=== PATIENT | female | born 2000 | race Caucasian/White ===

== ENCOUNTER 2020-08-30 21:07 | Emergency (ER) | payer OTHER ==
--- NOTE | 2020-08-30 21:44 | ER Document Report ---
ED Medical Screen (RME) - General Stated Complaint: UPPER SHOULDER PAIN/ELEVATING DOWN LEFT ARM - HPI Notes: 08/30/20 21:36 Rapid Medical Exam HPI: Pt is a 20 year old female c/o upper back pain radiating to left arm. Pt says she had a home and had a confirmatory test at her doctors office 2 days ago. last periods was 08/14. left upper back pain began 30 minutes ago while laying down at home. pain is sharp and intermittent. no hx of pe/dvt. Pt says she has had some intermittent vaginal bleeding- describes it as spotting. no abdominal pain. also says she gets numbness to bilat feet and hands X 1 year. Physical Exam: GENERAL: Well-appearing, well-nourished and in no acute distress. HEAD: Atraumatic, normocephalic. ENT: Moist mucous membranes. RESP: Respirations even and unlabored CV- Regular rate. NEURO: No focal neurological deficits. Moves all extremities spontaneously and on command. My involvement in this patients care was limited to a rapid initial assessment. A comprehensive ED assessment and evaluation of the patient, analysis of test results, treatment, and completion of the medical decision making process will be performed by other ER providers. Physical Exam - Vital signs Vitals: Temp Pulse Resp BP Pulse Ox 98.3 F 96 16 148/88 H 99 08/30/20 21:14 08/30/20 21:14 08/30/20 21:14 08/30/20 21:14 08/30/20 21:14 Course - Vital Signs Vital signs: Temp Pulse Resp BP Pulse Ox 98.3 F 96 16 148/88 H 99 08/30/20 21:14 08/30/20 21:14 08/30/20 21:14 08/30/20 21:14 08/30/20 21:14
[2020-08-30 22:35] LABS: ABSOLUTE BASOPHILS # (AUTO) 0.1 10^3/uL (0.0-0.2); ABSOLUTE EOSINOPHILS # (AUTO) 0.1 10^3/uL (0.0-0.6); ABSOLUTE MONOCYTES (AUTO) 0.8 10^3/uL (0.1-1.4); ABSOLUTE NEUT (AUTO) 9.9 10^3/uL (1.7-8.2); BASOPHILS % (AUTO) 0.6 % (0-2); EOSINOPHILS % (AUTO) 0.6 % (0-6); HEMOGLOBIN 13.3 g/dL (12.0-15.5); LYMPHOCYTES % (AUTO) 21.5 % (13-45); MEAN CORPUSCULAR HEMOGLOBIN 28.3 pg (27.0-33.4); MEAN CORPUSCULAR HGB CONC 34.1 g/dL (32.0-36.0); MEAN CORPUSCULAR VOLUME 83 fl (80-97); MONOCYTES % (AUTO) 5.8 % (3-13); PLATELET COUNT 286 10^3/uL (150-450); RED BLOOD COUNT 4.69 10^6/uL (3.72-5.28); SEGMENTED NEUTROPHILS % (AUTO) 71.5 % (42-78); TOTAL CELLS COUNTED % (AUTO) 100 %; WHITE BLOOD COUNT 13.9 10^3/uL (4.0-10.5)
[2020-08-30 22:50] LABS: APPEARANCE,URINE SLIGHTLY-CLOUDY; BILIRUBIN,URINE NEGATIVE (NEGATIVE); COLOR,URINE YELLOW; GLUCOSE, URINE NEGATIVE (NEGATIVE); KETONES,URINE NEGATIVE (NEGATIVE); LEUKOCYTE ESTERASE,URINE NEGATIVE (NEGATIVE); NITRITE,URINE NEGATIVE (NEGATIVE); PROTEIN,URINE NEGATIVE (NEGATIVE); URINE SPECIFIC GRAVITY 1.026; UROBILINOGEN,URINE NEGATIVE mg/dL (<2.0)
[2020-08-30 22:56] LABS: ALBUMIN 4.6 g/dL (3.5-5.0); ALKALINE PHOSPHATASE 97 U/L (38-126); ANION GAP 7 (5-19); ASPARTATE AMINO TRANSFERASE 24 U/L (14-36); BILIRUBIN,DIRECT 0.1 mg/dL (0.0-0.4); BILIRUBIN,TOTAL 0.5 mg/dL (0.2-1.3); BLOOD UREA NITROGEN 15 mg/dL (7-20); CALCIUM 9.6 mg/dL (8.4-10.2); CARBON DIOXIDE 28 mmol/L (22-30); CHLORIDE 101 mmol/L (98-107); GLUCOSE 91 mg/dL (75-110); POTASSIUM 3.7 mmol/L (3.6-5.0); TOTAL PROTEIN 7.9 g/dL (6.3-8.2)
--- NOTE | 2020-08-30 23:23 | ER Document Report ---
HPI - HPI Patient complains to provider of: Numbness to left upper back and left upper arm Time Seen by Provider: 08/30/20 22:48 Onset: This evening Onset/Duration: Gradual, Intermittent Quality of pain: Achy Pain Level: 2 Context: Patient states that around 8 PM this evening she developed some numbness to the left upper back and posterior aspect of the left upper extremity. Patient states symptoms have been intermittent since then. Patient denies any injury. Patient denies any history of IV drug abuse. Patient initially reported in triage that she had a positive test and has had some vaginal spotting. Patient states that she does not want to be evaluated for any issue she plans to terminate her current . Patient states that she really would like to be discharged at this time and does not want any additional testing this evening. Associated Symptoms: Other - Numbness to left upper extremity and left upper back Exacerbated by: Denies Relieved by: Denies Similar symptoms previously: No Recently seen / treated by doctor: No - ROS ROS below otherwise negative: Yes Systems Reviewed and Negative: Yes All other systems reviewed and negative - CONSTITUTIONAL Constitutional: DENIES: Fever, Chills - NEURO Neurology: DENIES: Headache, Weakness - RESPIRATORY Respiratory: DENIES: Coughing - GASTROINTESTINAL Gastrointestinal: DENIES: Abdominal Pain - REPRODUCTIVE Reproductive: REPORTS: : - MUSCULOSKELETAL Musculoskeletal: REPORTS: Neck Pain. DENIES: Extremity pain, Back Pain, Swelling - DERM Skin Color: Normal Skin Problems: None Past Medical History - General Information source: Patient - Social History Smoking Status: Never Smoker Frequency of alcohol use: None Drug Abuse: None Lives with: Spouse/Significant other Family History: Reviewed & Not Pertinent Psychiatric Medical History: Reports: Hx Anxiety Past Surgical History: Reports: Hx Appendectomy Vertical Provider Document - CONSTITUTIONAL Agree With Documented VS: Yes Exam Limitations: No Limitations General Appearance: WD/WN, No Apparent Distress Notes: PHYSICAL EXAMINATION: GENERAL: Well-appearing and in no acute distress. HEAD: Atraumatic, normocephalic. EYES: sclera anicteric, conjunctiva are normal. ENT: nares patent. Moist mucous membranes. NECK: Posterior cervical midline tenderness C5-6 area, no step-off or deformity, left cervical paraspinal muscle tenderness, normal range of motion, supple without lymphadenopathy LUNGS: CTAB and equal. No wheezes rales or rhonchi. HEART: Regular rate and rhythm without murmurs EXTREMITIES: 5/5 muscle strength to bilateral upper extremities, normal muscle tone to bilateral upper extremities, normal range of motion, no pitting edema. No cyanosis. BACK: No midline tenderness, no step-off or deformity. No CVA tenderness PSYCH: Normal mood, normal affect. SKIN: Warm, Dry, normal turgor, no rashes or lesions noted Course - Re-evaluation Re-evalutation: 08/30/20 23:20 Patient presents with intermittent altered sensation to the left upper back and posterior aspect of left upper extremity has been off and on since 8 PM today. Patient does have midline cervical tenderness. Offered patient imaging studies, patient declines at this time as symptoms have been off and on. Patient prefers to see if symptoms resolve as she is wanting to be discharged at this time. Patient states that she is although does not plan to keep the child and has made steps for termination. Patient declines any further evaluation of any vaginal spotting symptoms at this time. Patient encouraged to follow-up with her primary doctor as well as orthopedics for any persistent problems. - Vital Signs Vital signs: Temp Pulse Resp BP Pulse Ox 98.3 F 96 16 148/88 H 99 08/30/20 21:14 08/30/20 21:14 08/30/20 21:14 08/30/20 21:14 08/30/20 21:14 - Laboratory Result Diagrams: 08/30/20 22:20 08/30/20 22:20 Laboratory results interpreted by me: 08/30/20 08/30/20 08/30/20 22:20 22:20 22:20 WBC 13.9 H Absolute Neuts (auto) 9.9 H Sodium 135.6 L Urine HCG, Qual POSITIVE H 08/31/20 00:20 Labs- All tests 24 hr 08/30/20 08/30/20 08/30/20 22:20 22:20 22:20 WBC 13.9 H RBC 4.69 Hgb 13.3 Hct 39.0 MCV 83 MCH 28.3 MCHC 34.1 RDW 13.0 Plt Count 286 Lymph % (Auto) 21.5 [place] % (Auto) 5.8 Eos % (Auto) 0.6 Baso % (Auto) 0.6 Absolute Neuts (auto) 9.9 H Absolute Lymphs (auto) 3.0 Absolute Monos (auto) 0.8 Absolute Eos (auto) 0.1 Absolute Basos (auto) 0.1 Seg Neutrophils % 71.5 Sodium 135.6 L Potassium 3.7 Chloride 101 Carbon Dioxide 28 Anion Gap 7 BUN 15 Creatinine 0.64 Est GFR ( Amer) > 60 Est GFR (MDRD) Non-Af > 60 Glucose 91 Calcium 9.6 Total Bilirubin 0.5 Direct Bilirubin 0.1 Neonat Total Bilirubin Not Reportable Neonat Direct Bilirubin Not Reportable Neonat Indirect Bili Not Reportable AST 24 ALT 19 Alkaline Phosphatase 97 Total Protein 7.9 Albumin 4.6 Urine Color YELLOW Urine Appearance SLIGHTLY-CLOUDY Urine pH 7.0 Ur Specific [place] 1.026 Urine Protein NEGATIVE Urine Glucose (UA) NEGATIVE Urine Ketones NEGATIVE Urine Blood NEGATIVE Urine Nitrite NEGATIVE Urine Bilirubin NEGATIVE Urine Urobilinogen NEGATIVE Ur Leukocyte Esterase NEGATIVE Urine WBC (Auto) 4 Urine RBC (Auto) 1 Urine Bacteria (Auto) TRACE Squamous Epi Cells Auto 1 Urine Mucus (Auto) FEW Urine Ascorbic Acid NEGATIVE Urine HCG, Qual POSITIVE H Discharge - Discharge Clinical Impression: Paresthesia of arm, Positive test Condition: Stable Disposition: HOME, SELF-CARE Instructions: Acetaminophen Additional Instructions: Return immediately for any new or worsening symptoms Followup with your primary care provider, call tomorrow to make a followup appointment You present with symptoms worrisome for a cervical nerve irritation, follow-up with your primary doctor or orthopedics further evaluation of any persistent problems Referrals: [facility] [Provider Group] - Follow up as needed [facility] [Provider Group] - Follow up as needed
[2020-08-30 23:37] VITALS: BP 113/72
--- NOTE | 2020-08-31 08:07 | EKG REPORT ---
SEVERITY:- NORMAL ECG - SINUS RHYTHM : Confirmed by: Gennaro Chavira 31-Aug-2020 08:06:03
== END 2020-08-30 23:35 | disposition home or self-care (01) ==
LOC: ER 21:07
DX: R20.0 Anesthesia of skin (principal); M54.2 Cervicalgia; R20.2 Paresthesia of skin; Z32.01 Encounter for pregnancy test, result positive
CPT/HCPCS: 36415; 80053; 81001; 81025; 85025; 93005; 93010; 99284